=== PATIENT | female | born 1955 | race Caucasian/White ===

== ENCOUNTER → 2018-10-12 | Outpatient (REF) ==
--- NOTE | 2018-10-13 02:24 | REP ---
Clinical: Right shoulder pain. Technique: Internal rotation, external rotation, and Y view of the right shoulder. Findings: Mild cortical irregularity and spurring at the acromioclavicular joint is appreciated along with mild irregularity with very subtle subchondral cystic changes involving the region of the greater tuberosity at the humeral head. The glenoid appears intact. There is no evidence for acute fracture or dislocation. The subacromial space is normal. No obvious periarticular calcifications or loose bodies noted. Impression: Mild arthritic changes Electronically Signed by Samir An MD 10/13/2018 02:15 A
--- NOTE | 2018-10-13 03:30 | REP ---
Clinical: Pain and disability. Technique: AP, lateral, bilateral oblique and sunrise views of the left knee. Findings: Moderate tricompartmental osteoarthritic degenerative changes include joint space narrowing, subchondral sclerosis, marginal osteophytes and subtle effusion. No obvious acute fracture or dislocation. Anterior swelling noted. Impression: Moderate tricompartmental degenerative changes. Electronically Signed by Samir An MD 10/13/2018 03:22 A
== END ==
LOC: M SMT 09:58
PROVIDERS: ATTEND Internal Medicine
DX: Z02.71 Encounter for disability determination (principal); M17.12 Unilateral primary osteoarthritis, left knee; M19.011 Primary osteoarthritis, right shoulder